=== PATIENT | female | born 1970 | race Caucasian/White ===

== ENCOUNTER → 2019-10-04 | Outpatient (CLI) | payer MEDICAID, SELFPAY ==
--- NOTE | 2019-10-04 | TISS_PTH ---
PATIENT: TENZIN CALDERON LOC: [facility] U#:[id number] AGE/SX: 49/F ROOM: RE10/04/[address]: Dr. Deepak Marsh MD : [id number] BED: DIS: 10/04/2019 SPEC #: [id number] RECD: 10/04/19 13:27 STATUS: SOSA HODAN #: [id number] ASHLEE: 10/04/19 00:[address]: Deepak Marsh DEPT: SURGICAL PATHOLOGY RECD BY: Will Garza Tissues: [facility] [place] TISSUE Procedures: Surgery Specimen Level IV HEADER OPERATION: Right tonsil mucocele biopsy PRE-OP DIAGNOSIS: Right tonsil mucocele TISSUE SUBMITTED: Right tonsil mucocele MICROSCOPIC DIAGNOSIS Right tonsil mucocele, biopsy: A piece of squamous mucosa with a benign cyst, mild chronic inflammation and subepithelial fibrosis. See comment. ANA:marge 10/08/19 COMMENT The cyst is lined by the squamous epithelium. Clinical correlation and appropriate follow up are necessary. Case has been reviewed in consultation with Dr. Mar who concurs with the above diagnosis. IDC:AM MICROSCOPIC DESCRIPTION Slides are reviewed. GROSS DESCRIPTION Received in fixative is one container labeled with the patient's name and designated right tonsil mucocele. The specimen consists of one irregular fragment of light michel soft tissue that measures 0.3 x 0.2 x 0.1 cm. The specimen is totally submitted in one cassette. / ANA:marge 10/05/19 TC:3 CPT: 43801
== END | disposition home or self-care (01) ==
LOC: LABSPEC 10-05 09:23
PROVIDERS: Referring Provider Otolaryngology; Visit Provider Otolaryngology
DX: K11.6 Mucocele of salivary gland (principal)
CPT/HCPCS: 88305